=== PATIENT | male | born 1965 | race Caucasian/White ===

== ENCOUNTER 2019-08-04 09:00 | Outpatient (RCR) | payer OTHER, MEDICARE, SELFPAY ==
--- NOTE | 2019-07-07 10:26 | PTOPEVAL ---
PHYSICAL THERAPY EVALUATION AND PLAN OF CARE Thank you for referring this patient to [facility]. Anastacio will be seen in skilled PT 2x/week for 4 weeks. Please review, sign, date and return this plan of care RAFAEL. I agree with and certify that the following plan of care is medically necessary. Referring Physician Date Attending Provider: Rainer Garcia PA-C Evaluation Outpatient Past Medical History Neurological History Hx Neurological Disorders No Significant History Cardiovascular History Hx Hypertension Yes Respiratory History Hx Respiratory Disorders No Significant History Gastrointestinal History Hx Gastroesophageal Reflux Disease Yes Genitourinary History Hx Genitourinary Disorders No Significant History Musculoskeletal History Hx Arthritis Yes Hx Back Pain Yes Hx Fractures Yes: LT TIBIA FX YEARS AGO, HAS METAL PLATE AND SCREWS Hx Joint Replacement Yes: LT HIP REPLACED 2018 ; RT HIP REPLACED 2011 Hx Orthopedic Surgery Yes: LT TIBIA FX REPAIR Hx Osteoporosis Yes Hematological History Hx Hematological Disorders No Significant History Endocrine History Hx Endocrine Disorders No Significant History HEENT History Hx HEENT Disorders No Significant History Integumentary History Hx Skin Disorders No Significant History Reproductive History Hx Reproductive Disorders No Significant History Psychosocial History Hx Psychiatric Disorders No Significant History Pain History Has Past Pain Affected Your Daily Life Yes: STILL HAVING PAIN FROM LT HIP REPLACEMENT 07/2018. TAKES HYDROCODONE. Evaluation Information Diagnosis low back pain Onset 06/09/2019 Subjective Information Anastacio reports that on 06/09/2019 he bent forward and something click and he couldn't move for 17days. He tried to play pool with his opposite hand and something clicked and he could move again. Then he experienced another episode of clicking where he was unable to move and then move again, but then he started to experience left leg radicular symptoms. He is going to see his orthopedic surgeon for a 1 year follow up of left CLARITA on 07/15/2019 and he is going to have that doctor look at his back x-rays. Bilateral Spine, Lumbar Reported Pain Level 2 Pain Description Aching Pain Radiation Left Leg Radicular Pain Location to left calf Pain Frequency Acute,Intermittent Current Pain Intensity 2 Lowest Pain Intensity 0 Greatest Pain Intensity 8 Pain Aggravating Factors Lifting Other Pain Aggravating Factors bending over forward Pain Behaviors None Pain Relief Interventions Used By Heat Patient Lumbar R
--- NOTE | 2019-08-04 09:16 | PTOPEVAL ---
PHYSICAL THERAPY DISCHARGE REPORT Thank you for referring this patient to [facility]. I recommend Anastacio discharge from PT at this time. He is independent in HEP and has met functional goals. He is capable of making further progress independently. Please review, sign, date and return this plan of care RAFAEL. I agree with and certify that the following plan of care is medically necessary. Referring Physician Date Admitting Provider: Attending Provider: Rainer Garcia PA-C Musculoskeletal History Hx Arthritis Yes Hx Back Pain Yes Hx Fractures Yes: LT TIBIA FX YEARS AGO, HAS METAL PLATE AND SCREWS Hx Joint Replacement Yes: LT HIP REPLACED 2018 ; RT HIP REPLACED 2011 Hx Orthopedic Surgery Yes: LT TIBIA FX REPAIR Hx Osteoporosis Yes Other History Hx Implanted Device Yes: DILCIA. HIPS. Evaluation Information Diagnosis low back pain Onset 06/09/2019 Subjective Information Anastacio is here today with Query Text:As Reported By Patient/ reports of no pain. He is Family pleased with his exercises in combination with use of anti- inflammatory medication and steroids. He states he plans to continue his home exercises and states understanding of using exercises to help prevent pain and further injury. Pain Score Pain Score 0: Self Report Cervical and Lumbar ROM Lumbar ROM Lumbar Flexion (0-90) 60deg Lumbar Flexion Active Ankle Query Text:Hands to: Lumbar Extension (0-40) 30deg Lateral Rotation Right (0-45) 25deg Lateral Rotation Left (0-45) 25deg Hip Strength Left Hip Flexion Strength 5 Normal Hip Extension Strength 4+ Good + Hip Abduction Strength 4 Good Right Hip Flexion Strength 3+ Fair + Hip Extension Strength 4 Good Hip Abduction Strength 5 Normal Knee Strength Bilateral Knee Flexion Strength 5 Normal Knee Extension Strength 5 Normal Gait Pattern Trendelenburg Gait Gait Pattern Observed Trunk Lateral Lean - Left Other Gait Observations lateral trunk lean due to left leg length discrepency - decreased compared to initial visit Clinical Summary Anastacio has participated in physical therapy for 4 weeks
== END 2019-08-04 10:54 | disposition home or self-care (01) ==
LOC: ANHPT 09:00
PROVIDERS: PCP Internal Medicine; Visit Provider Physician Assistant
DX: M54.5 Low back pain (principal)
CPT/HCPCS: 97110; 97140; 97162

== ENCOUNTER 2020-08-17 14:21 | Outpatient (CLI) | payer OTHER, MEDICARE, SELFPAY ==
[2020-08-17 14:59] LABS: Basophils Absolute Auto 0.1 K/mm3 (0.0-0.1); Basophils Percent Auto 1.2 % (0.2-1.2); Eosinophils Absolute Auto 0.3 K/mm3 (0-0.3); Eosinophils Percent Auto 3.5 % (0-4.4); Hemoglobin 15.7 g/dL (14.0-18.0); Immature Granulocyte Absolute 0.02 K/mm3 (0.00-0.031); Immature Granulocyte Percent A 0.2 % (0-0.5); Lymphocytes Absolute Auto 2.77 K/mm3 (0.9-3.2); Lymphocytes Percent Auto 31.1 % (18.3-44.2); Mean Corpuscular HGB Conc 34.1 g/dl (32-36); Mean Corpuscular Hemoglobin 31.2 pg (26-34); Mean Corpuscular Volume 91.5 fl (80-100); Mean Platelet Volume 8.7 fl (7.4-10.4); Monocytes Absolute Auto 0.9 K/mm3 (0.1-0.6); Monocytes Percent Auto 10.3 % (2.6-8.5); Neutrophils Absolute Auto 4.8 K/mm3 (1.3-6.7); Neutrophils Percent Auto 53.7 % (45.5-73.1); Platelet Count Result 293 k/mm3 (150-375); Red Blood Count 5.03 M/mm3 (4.6-6.20); Red Cell Distribution Width 12.8 % (11.5-14.5); White Blood Count 8.9 K/mm3 (4.5-10.0)
[2020-08-17 15:03] LABS: Add Urine Microscopic? NO; Appearance Urine Clear (Clear); Bilirubin Urine Negative (Negative); Blood Urine Negative (Negative); Color Urine Yellow (Yellow); Glucose Urine UA Negative (Negative); Ketones Urine Negative (Negative); Leukocyte Esterase Ur Negative LEU/UL (Negative); Nitrate Urine Negative (Negative); Protein Urine Negative (Negative); Specific Grav Ur 1.018 (1.001-1.035); Urobilinogen Urine Negative mg/dL (<2.0)
[2020-08-17 15:09] LABS: Anion Gap 5 mmol/L (8-16); Blood Urea Nitrogen 13 mg/dL (9-20); Calcium 9.4 mg/dL (8.4-10.2); Carbon Dioxide 28 mmol/L (22-30); Chloride 104 mmol/L (98-107); Estimated Glomerular Filt Rate > 60; Glucose 139 mg/dL (75-110); Potassium 3.6 mmol/L (3.4-5.0); Sodium 137 mmol/L (137-145)
[2020-08-17 15:52] LABS: Erythrocyte Sedimentation Rate 2 mm/hr (0-20)
== END 2020-08-17 14:22 | disposition home or self-care (01) ==
PROVIDERS: PCP Internal Medicine; Visit Provider Internal Medicine
DX: R30.0 Dysuria (principal); M54.5 Low back pain
CPT/HCPCS: 36415; 80048; 81003; 85025; 85652

== ENCOUNTER → 2021-11-29 08:04 | Outpatient (CLI) | payer OTHER, MEDICARE, SELFPAY ==
--- NOTE | ~2021-11-29 | XR_ITS ---
EXAMINATION: XR shoulder RT min 2V INDICATION: Right shoulder pain TECHNIQUE: Four views of the right shoulder are obtained on five radiographs. COMPARISON: None FINDINGS: Normal alignment. No fracture. There is moderate osteoarthritis of the glenohumeral and acr omioclavicular joints. Soft tissues are unremarkable. IMPRESSION: 1. Moderate osteoarthritis. Reviewed, dictated and finalized at location A. IMPRESSION: 1. Moderate osteoarthritis.
== END ==
PROVIDERS: PCP Internal Medicine; Visit Provider Internal Medicine
DX: M25.511 Pain in right shoulder (principal); M19.011 Primary osteoarthritis, right shoulder
CPT/HCPCS: 73030

== ENCOUNTER 2024-08-21 14:05 | Outpatient (CLI) | payer OTHER, MEDICARE, SELFPAY ==
--- NOTE | ~2024-08-21 | US_ITS ---
EXAMINATION: US arterial duplex LE DATE: 08/21/2024 17:51 CDT INDICATION: Peripheral arterial disease lower extremities TECHNIQUE: Segmental pressures and plethysmographic and Doppler waveforms of the brachial and lower e xtremity arteries were obtained. COMPARISON: None. FINDINGS: Right and left brachial artery pressures of 151 mm Hg and 171 mm Hg, respectively, are concordant (no rmal difference <= 30 mmHg). The right high-thigh pressure index is 0.87 (normal > 1.2). The right ankle-brachial index (FLAVIA) is 0 .45 (normal >= 0.9-1.0). The right great toe-brachial index (TBI) is 0.26 (normal >= 0.60). The right lower extremity segmental pressure gradients are increased below the right thigh (normal gradients < = 20-30 mmHg between adjacent levels on the same leg or the same levels on the two legs). Arterial Do ppler waveforms is biphasic in the right common femoral and monophasic in the superficial femoral, po pliteal, posterior tibial and dorsalis pedis arteries.. The left high-thigh pressure index is not evaluated. The left FLAVIA is 0.92. The left TBI is 0.55. The left lower extremity segmental pressure gradients are increased below the ankle. Arterial Doppler wav eforms are biphasic in the left common femoral, superficial femoral, posterior tibial and dorsalis pe dis arteries and monophasic in the popliteal artery.. IMPRESSION: 1. Abnormal ankle and toe brachial indices bilaterally consistent with moderate-severe peripheral art erial disease in the right lower extremity and mild peripheral arterial disease in the left lower ext remity. Reviewed, dictated and finalized at location B. IMPRESSION: 1. Abnormal ankle and toe brachial indices bilaterally consistent with moderate -severe peripheral arterial disease in the right lower extremity and mild perip heral arterial disease in the left lower extremity.
--- OUTSIDE RECORDS SUMMARY | 2024-08-21 14:25 | XMS_ITS | Referral Summary ---
Author Organization [facility] al Address [address] [place] [address] Care Team Providers Care Category Specialist Name Role Phone Master Amaya MD Primary Care Provider [phone] Allergies No known active allergies Medications lisinopril (PRINIVIL,ZESTR IL) 40 mg tablet TK 1 T PO QD in morning for blood pressure [address] (PROTONIX) 40 mg EC tablet TK 1 T PO QD morning for reflux 5 8 Active celecoxib (CeleBREX) 200 mg capsuleIndicati ons:Osteoarthri tis,Postoperati ve Acute Pain TAKE 2 PILLS WITH BREAKFAST THE DAY BEFORE SX. TAKE 1 PILL BID AFTER DISCHARGE. 10 capsule 8 Active CIALIS 10 mg tablet TK 1 T PO UTD 1 9 Active HYDROcodone-cas taminophen (NORCO) 5-325 mg per tabletIndicatio ns:Pain Take 1-2 tablets by mouth every 4 (four) hours as needed for pain. 70 tablet 9 Active predniSONE (DELTASONE) 10 mg tabletIndicatio ns:History of total hip arthroplasty, left Take 1 tablet (10 mg) by mouth daily Take 70, 60,50.40,30,20 ,10 till all is gone. 28 tablet 0 Active sildenafiL (VIAGRA) 100 mg tablet TAKE 1 TABLET BY MOUTH ONCE DAILY NEEDED 30 MINUTES TO 4 HOURS BEFORE ACTIVITY 0 Active omeprazole (PriLOSEC) 20 mg capsule Take 20 mg by mouth daily 2 Active gabapentin (NEURONTIN) 100 mg capsule TAKE 1 CAPSULE BY MOUTH EVERY DAY AT BEDTIME 3 Active carvediloL (COREG) 12.5 mg tablet TAKE 1 TABLET BY MOUTH EVERY 12 HOURS WITH A MEAL/FOOD 3 Active Active Problems Problem Noted Date Diagnosed Date Primary osteoarthritis of left hip 05/13/2018 Overview (05/13/2018): Added automatically from request for surgery [id number] NSAID long-term use 08/12/2017 Tendinitis of left rotator cuff 08/13/2016 Osteoarthritis of knee 07/07/2015 Surgical follow-up care 11/19/2011 Osteoarthritis of hip 08/10/2011 Social History Tobacco Use Types Packs/Day Years Used Date Smoking Tobacco: Former Cigarettes 1 51.9 1 967 - 05/12/2018 Smokeless Tobacco: Never Alcohol Use Standard Drinks/Week Comments Yes 30 (1 standard drink = 0.6 oz pure alcohol) 4-5 beers per day; decreased periop consumption encouraged Sex and Gender Information Value Date Recorded Sex Assigned at Not on file Legal Sex 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 Gender Identity Not on file Sexual Orientation Not on file Last Filed Vital Signs Vital Sign Reading Time Taken Comments Blood Pressure 117/63 07/05/2018 11:37 AM HERBARIUM CURATOR Pulse 91 07/05/2018 11:37 AM HERBARIUM CURATOR Temperature 36.8 C (98.2 F) 07/05/2018 11:37 AM HERBARIUM CURATOR Respiratory Rate 16 07/05/2018 11:37 AM HERBARIUM CURATOR Oxygen Saturation 95% 07/05/2018 11:37 AM HERBARIUM CURATOR Inhaled Oxygen Concentration - - Weight 81.2 kg (179 lb) 05/20/2024 10:30 AM HERBARIUM CURATOR Height 177.8 cm (5' 10 ) 05/20/2024 10:30 AM HERBARIUM CURATOR Body Mass Index 25.68 05/20/2024 10:30 AM HERBARIUM CURATOR Plan of Treatment Not on file Medical Devices Implanted Type Area Surveillance Camera Technician Device Identifier Shelf Expiration Date Model / Serial / Lot [employer] [id number] [place] 56mm Sector Hip Shell Acetabular Gription Sterile Latex Free - [id number] Implanted:Qty: 1 on 07/04/2018 by Tim Long MD at [facility] Left: Hip [employer] 06/02/2028 [id number] / / [id number] [employer] [id number] [place] 56mm 36mm Hip Neutral Liner Acetabular Altrx Sterile Latex Free - [id number] Implanted:Qty: 1 on 07/04/2018 by Tim Long MD at [facility] Left: Hip [employer] 06/02/2023 [id number] / / [id number] [employer] [id number] [place] 6.5mm 40mm Acetabular Cancellous Screw Bone Sterile - [id number] Implanted:Qty: 1 on 07/04/2018 by Tim Long MD at [facility] Left: Hip [employer] 04/02/2028 [id number] / / [id number] [employer] 1010-11-050 Actis 105mm Collar Hip 5 Standard Offset Stem Femoral - [id number] Implanted:Qty: 1 on 07/04/2018 by Tim Long MD at [facility] Left: Hip [employer] 05/02/2028 1010-11-050 / / [id number] [employer] [id number] Articul/Yosi 36mm Cementless Hip +1.5mm 12/14 Taper Head Femoral Latex Free - [id number] Implanted:Qty: 1 on 07/04/2018 by Tim Long MD at [facility] Left: Hip [employer] 04/02/2023 [id number] / / [id number] Insurance MEDICARE [facility] [employer] [facility] HMO/PPO Address: [address] [address] [place] [address] [facility] CHOICE PLUS [facility] HMO/PPO Address: [address] [address] [place] [address] MEDICARE [facility] EM[employer]OYEES [facility] [facility] HMO/PPO Address: [address] [address] [place] [address] MEDICARE Advance Directives For more information, please contact: [phone] * Full Code (Latest Code Status on File) Date Activated Date Inactivated Comments 07/04/2018 4:47 PM 07/05/2018 9:45 PM Care Teams Category Specialist Relationship Specialty Start Date End Date Master Amaya MD [address] [facility] [address] [place] [address] PCP - General 08/12/17
--- OUTSIDE RECORDS SUMMARY | 2024-08-21 14:25 | XMS_ITS | Clinical Summary ---
Author Organization [facility] al Address [address] [place] [address] Care Team Providers Care Social Media Intern Name Role Phone Master Amaya MD Primary Care Provider [phone]- [phone] Allergies No known active allergies Medications lisinopril [...] (05/13/2018): Added automatically from request for surgery [id number] NSAID long-term use 08/12/2017 Tendinitis of left rotator cuff 08/13/2016 Osteoarthritis of knee 07/07/2015 Surgical follow-up care 11/19/2011 Osteoarthritis of hip 08/10/2011 Surgical History Surgery Date Site/Laterality Comments KNEE SURGERY 03/03/2001 - 04/02/2001 Left w/ open high tibial osteostomy of left knee TOTAL HIP ARTHROPLASTY 10/02/2011 - 11/01/2011 Right Medical History Medical History Date Comments Aftercare following joint re placement surgery Aftercare following joint re placement - (Added by TW Conv) Hypertension Gastric reflux Osteoarthritis Ortiz involving 10-19% of body surface 1995 R arm, bilat. legs, R side of face Family History Medical History Relation Name Comments Diabetes Mother Hypertension Mother Diabetes Sister 1 Diabetes Sister 2 Diabetes Sister 3 Relation Name Status Comments Mother Alive Sister 1 Alive Sister 2 Alive Sister 3 Alive Social History Tobacco Use Types Packs/Day Years Used Date Smoking Tobacco: Former Cigarettes 1 51.9 1 967 - 05/12/2018 Smokeless Tobacco: Never Alcohol Use Standard Drinks/Week Comments Yes 30 (1 standard drink = 0.6 oz pure alcohol) 4-5 beers per day; decreased periop consumption encouraged Sex and Gender Information Value Date Recorded Sex Assigned at Not on file Legal Sex 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 Gender Identity Not on file Sexual Orientation Not on file Obstetrics History Last Filed Vital Signs Vital Sign Reading Time Taken Comments Blood Pressure 117/63 07/05/2018 11:37 AM WELDING MACHINE OPERATOR FRICTION Pulse 91 07/05/2018 11:37 AM WELDING MACHINE OPERATOR FRICTION Temperature 36.8 C (98.2 F) 07/05/2018 11:37 AM WELDING MACHINE OPERATOR FRICTION Respiratory Rate 16 07/05/2018 11:37 AM WELDING MACHINE OPERATOR FRICTION Oxygen Saturation 95% 07/05/2018 11:37 AM WELDING MACHINE OPERATOR FRICTION Inhaled Oxygen Concentration - - Weight 81.2 kg (179 lb) 05/20/2024 10:30 AM WELDING MACHINE OPERATOR FRICTION Height 177.8 cm (5' 10 ) 05/20/2024 10:30 AM WELDING MACHINE OPERATOR FRICTION Body Mass Index 25.68 05/20/2024 10:30 AM WELDING MACHINE OPERATOR FRICTION Plan of Treatment Health Maintenance Due Date Last Done Comments Colon Cancer Screening-Colonoscopy 1963 Depression Screening 1963 Hepatitis C Screening 1963 Prostate Cancer Screening-PSA 1963 DTaP/Tdap/Td Vaccine (1 - Tdap) 1974 Hepatitis B Screening 1981 Regular Well Visit/Exam 18-64 1981 Lung Cancer Screening 2013 Zoster Vaccine (1 of 2) 2013 Influenza Vaccine (#1) 2024 Pneumococcal vaccine <65 Aged Out No longer eligible based on patient's age to complete this topic Medical Devices Implanted Type Area Refrigeration Systems Installer Device Identifier Shelf Expiration Date Model / Serial / Lot [employer] [id number] [place] 56mm Sector Hip Shell Acetabular Gription Sterile Latex Free - [id number] Implanted:Qty: 1 on 07/04/2018 by Tim Long MD at [facility] Left: Hip [employer] 06/02/2028 [id number] / / [id number] [employer] [id number] [place] 56mm 36mm Hip Neutral Liner Acetabular Altrx Sterile Latex Free - [id number] Implanted:Qty: 1 on 07/04/2018 by Tim Long MD at [facility] Left: Hip [employer] 06/02/2023 [id number] / / [id number] [employer] [id number] [place] 6.5mm 40mm Acetabular Cancellous Screw Bone Sterile - [id number] Implanted:Qty: 1 on 07/04/2018 by Tim Long MD at [facility] Left: Hip [employer] 04/02/2028 [id number] / / [id number] [employer] 1010-11-050 Actis 105mm Collar Hip 5 Standard Offset Stem Femoral - [id number] Implanted:Qty: 1 on 07/04/2018 by Tim Long MD at [facility] Left: Hip [employer] 05/02/2028 1010-11-050 / / [id number] [employer] [id number] Articul/Yosi 36mm Cementless Hip +1.5mm 05/16 Taper Head Femoral Latex Free - [id number] Implanted:Qty: 1 on 07/04/2018 by Tim Long MD at [facility] Left: Hip [employer] 04/02/2023 [id number] / / [id number] Insurance MEDICARE [facility] EMPLOYEES [facility] CHOICE PLUS MEDICARE [facility] [employer] MEDICARE Advance Directives For more information, please contact: [phone] * Full Code (Latest Code Status on File) Date Activated Date Inactivated Comments 07/04/2018 4:47 PM 07/05/2018 9:45 PM Care Teams Social Media Intern Relationship Specialty Start Date End Date Master Amaya MD [address] [facility] [address] [place] [id number] PCP - General 08/12/17
== END 2024-08-21 14:06 | disposition home or self-care (01) ==
PROVIDERS: PCP Internal Medicine; Visit Provider Podiatrist Foot & Ankle Surgery
DX: I73.9 Peripheral vascular disease, unspecified (principal)
CPT/HCPCS: 93925

== ENCOUNTER 2025-04-28 13:45 | Outpatient (CLI) | payer OTHER, MEDICARE, SELFPAY ==
--- NOTE | ~2025-04-28 | US_ITS ---
EXAMINATION: US venous doppler UE RT DATE: 04/28/2025 14:28 INDICATION: Right hand swelling TECHNIQUE: Betancourt scale images with and without compression and Doppler images of the right upper extremity veins were obtained. COMPARISON: None. FINDINGS: The right internal jugular vein, subclavian vein, axillary vein, brachial veins, basilic vein, cephalic vein, radial vein, and ulnar vein are patent. IMPRESSION: 1. Patent right upper extremity veins. No evidence of deep venous thrombosis. Reviewed, dictated and finalized at location O. TRICAL EQUIPMENT TECHNICIAN
== END 2025-04-28 13:46 | disposition home or self-care (01) ==
PROVIDERS: PCP Internal Medicine; Visit Provider Nurse Practitioner
DX: M79.89 Other specified soft tissue disorders (principal); M79.601 Pain in right arm
CPT/HCPCS: 93971